=== PATIENT | male | born 1995 | race Caucasian/White ===

== ENCOUNTER → 2016-10-31 | Outpatient (CLI) | payer BC ==
--- NOTE | 2016-10-31 15:32 | DIAGNOSTIC IMAGING REPORT ---
RIGHT KNEE 3 VIEWS; LEFT KNEE 3 VIEWS CLINICAL HISTORY: Bilateral knee pain. FINDINGS: An AP standing view of both knees, a sunrise view of both knees, with lateral views of the right and left knee are obtained. No prior studies are available for comparison at the time of dictation. The skeletal structures are well mineralized. No fracture is seen in either knee. The joint spaces are well-maintained in both knees. No joint effusion is seen in either knee. The overlying soft tissues are within normal limits. IMPRESSION: Unremarkable radiographic assessment of the knees. Electronically signed by: Azar Varner M.D. 10/31/2016 3:30 PM Dictated Date/Time: 10/31/2016 3:29 PM
== END | disposition home or self-care (01) ==
LOC: C.RDSM 15:20
PROVIDERS: ATTEND Family Medicine
DX: M25.561 Pain in right knee (principal); M25.562 Pain in left knee